=== PATIENT | male | born 1955 | race Caucasian/White ===

== ENCOUNTER 2017-03-09 10:18 | Observation (INO) ==
[2017-03-09] MEDS ORDERED: NS 1,000 ML IV ONE ×2 (10:30→14:09)
[2017-03-09] MEDS: SALINE FLUSH 10ml SYRINGE IVF PRN ×2 (10:39→16:40)
[2017-03-09] MEDS ORDERED: METOPROLOL 5mg/5ml INJECTION IVP ONE (10:40)
--- NOTE | 2017-03-09 11:35 | Emergency Department Report ---
General Adult HPI - General Chief complaint: Chest Pain Stated complaint: cp,dizzy,racing hb Time Seen by Provider: 03/09/17 10:29 Source: patient, family Mode of arrival: ambulatory Limitations: no limitations - History of Present Illness HPI narrative: 62-year-old male presents to the emergency department with a chief complaint of atrial fibrillation. Patient notes feeling what he describes as an indigestion sensation with his heart beating irregularly. Patient denies true pain or discomfort. Patient noted onset of symptoms one to 2 weeks ago while [place] Patient states his symptoms have been persistent in nature since onset. Patient has a history of atrial fibrillation 25 years ago which converted without intervention. Patient is not anticoagulated. Patient does not note any exacerbating or remitting factors. No other complaints or associated symptoms. - Related Data Home Medications Medication Instructions Recorded Confirmed Ibuprofen 400 mg PO TID PRN #0 11/27/15 03/09/17 Somatropin [Genotropin] 0.04 mg SQ DAILY #0 02/28/16 03/09/17 Ranitidine [Zantac] 1 tab PO BID PRN 03/09/17 03/09/17 Previous Rx's Medication Instructions Recorded testosterone cypionate 200 mg/mL 1.5 ml IM Q2WK #10 ml 01/23/17 intramuscular oil Allergies Allergy/AdvReac Type Severity Reaction Status Date / Time varenicline AdvReac Severe NIGHTMARES Verified 03/09/17 10:48 Review of Systems Constitutional: Denies: fever, chills Eyes: Denies: eye pain, vision change ENT: Denies: ear pain, throat pain Cardiovascular: Reports: palpitations. Denies: chest pain Respiratory: Denies: cough, dyspnea Gastrointestinal: Denies: abdominal pain, nausea, vomiting, diarrhea Genitourinary: Denies: urgency, dysuria Musculoskeletal: Denies: back pain, arthralgia Integumentary: Denies: erythema, rash Neurological: Denies: headache, weakness Psychiatric: Denies: anxiety, depression Endocrine: Denies: fatigue, heat or cold intolerance Hematological/Lymphatic: Denies: easy bleeding, easy bruising Allergic/Immunologic: Denies: facial swelling, urticaria PFSH Patient Stated Medical History Cardiac Arrhythmia Yes Gastroesophageal Reflux Yes Disease Clinic Medical History (Last Reviewed 01/23/17 @ 10:03 by ESTEFANY Aparicio) Pituitary insufficiency (Chronic Medical) Doing fairly well with hormone replacements. 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 Obesity (BMI 30-39.9) (Chronic Medical) Good weight loss. Surgical History: Rt feet surgery Family History: Reviewed and non-contributory - Social History Smoking status: Current every day smoker Substance use type: does not use Alcohol intake frequency: a few times a month Physical Exam - Limitations Limitations: no limitations - General General appearance: alert, in no apparent distress - Normal Exams: Head:: Normocephalic without trauma Eyes:: Pupils are PERRLA w/ EOMI, No scleral icterus, irritation, or foreign bodies noted ENMT:: No facial trauma, nasal exudates, pharyngeal erythema, or exudates are noted Dental: No fractured, loose, or missing teeth noted Neck:: Full range of motion, without adenopathy, JVD, bruits or thyromegaly Chest/Respirations:: Clear all eric, with good airflow, and symmetry bilaterally Cardiovascular:: without murmur or gallop, Pulses 2+ all extremities, capillary refill, <2 seconds all extremities (Irreg. Irreg. Rate - 140 bpm. ) Abdomen:: Bowel sounds positive, soft, non-tender, non-distended, no hepatosplenomegaly, masses or bruits noted Lymphatic:: No lymphadenopathy, or lymphedema noted Musculoskeletal:: No tenderness, or deformity noted, good range of motion, all extremities Integumentary:: No rashes, hives, or bruising noted, hair and nails, without abnormality Neurological:: Patient is alert, and oriented, cranial nerves, motor/sensory/ cerebellar, exams w/o gross deficits, to observation Psychiatric:: Patient exhibits, appropriate attention, emotion and affect Course Vital Signs Temperature 97.7 F 03/09/17 10:20 Pulse Rate 151 H 03/09/17 10:20 Respiratory Rate 14 03/09/17 10:20 Blood Pressure 118/100 H 03/09/17 10:20 Pulse Oximetry 99 03/09/17 10:20 Temperature 97.8 F 03/09/17 13:15 Pulse Rate 134 H 03/09/17 14:30 Respiratory Rate 16 03/09/17 14:30 Blood Pressure 118/69 03/09/17 14:30 Pulse Oximetry 99 03/09/17 14:30 Medical Decision Making - MDM Narrative Medical decision making narrative: Labs / imaging were discussed in detail with the patient and family and questions are answered. Patient is given 1 L normal saline intravenously. Patient is given intravenous Lopressor. Patient and his both state the patient is very susceptible to IV medications and requests a low-dose medication be administered at 1st. Patient does improve with his heart rate lowering from 80 to occasionally ranging to 130 bpm. Patient does not stay sustained at 130 bpm. After the IV Lopressor has worn off the patient is given Lopressor 25 mg by mouth 1 with improvement of symptoms. Patient is discussed with Dr. Little of cardiology and admitted to his service to the CCU in improved condition. Patient is admitted to the service of cardiology in improved condition. No further orders from accepting physician who is in agreement with the current plan of management. Patient is given aspirin 324 mg by mouth times one. Patient and family are in agreement with the current plan of management. 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 HR at time of transfer was 112 bpm on the monitor. 60 minutes of critical care time was assessed to the patient due to the heart rate of 151 bpm. Patient required complex medical decision-making, repeated assessment at the bedside, and had the potential for decompensation. Patient was admitted to the CCU in improved condition. - Differential Diagnosis Afib with Rvr, metabolic disorder, PE, ACS - Lab Data Result diagrams: 03/09/17 10:30 03/09/17 10:30 Lab Results 03/09/17 03/09/17 03/09/17 Range/Units 10:30 10:30 10:30 WBC 9.9 (4.5-11.0) T/MM3 RBC 5.24 (4.50-5.90) M/MM3 Hgb 15.6 (13.5-17.5) GM/DL Hct 45.6 (41-53) % MCV 87.0 (80-100) UM3 MCH 29.8 (26-34) UUG MCHC 34.2 (31-37) GM/DL RDW Std Deviation 47.8 (36.9-50.2) FL Plt Count 240 (130-400) T/MM3 MPV 11.2 (9.4-12.4) UM3 Immature Gran % (Auto) 0.1 (0.0-0.5) % Neut % (Auto) 51.2 (33-66) % Lymph % (Auto) 37.8 (23-45) % [place] % (Auto) 7.2 (0-9.0) % Eos % (Auto) 3.0 (0-4) % Baso % (Auto) 0.7 (0-2) % Neut # 5.1 (1.8-7.7) T/MM3 Lymph # 3.7 (1-4.8) T/MM3 [place] # 0.7 (0-0.8) T/MM3 Eos # 0.3 (0-0.5) T/MM3 Baso # 0.1 (0-0.2) T/MM3 Abs Immat Gran (auto) 0.01 (0.00-0.03) T/MM3 D-Dimer 274 H (0-230) NG/ML Turbidity < 20 (0-20) Sodium 142 (134-144) MEQ/L Potassium 4.5 (3.6-5) MEQ/L Chloride 108 H (98-107) MEQ/L Carbon Dioxide 24 (22-30) MEQ/L Anion Gap 10 (5-15) MEQ/L BUN 20.0 (9-20) MG/DL Creatinine 1.1 (0.8-1.5) MG/DL GFR Calculation 68 BUN/Creatinine Ratio 18 (6-26) RATIO Glucose 94 (75-110) MG/DL Calculated Osmolality 276 (261-280) MOSM/KG Calcium 9.7 (8.4-10.2) MG/DL Total Bilirubin 0.80 (0.20-1.30) MG/DL Icterus Index < 2 (0-7) AST 49 (17-59) U/L ALT 52 (21-72) U/L Alkaline Phosphatase 51 (38-126) U/L Troponin I < 0.012 (0-0.12) ng/ml Total Protein 7.3 (6.3-8.2) G/DL Albumin 4.4 (3.5-5.0) G/DL Globulin 2.9 (2.4-3.6) G/DL Albumin/Globulin Ratio 1.5 (1.1-2.2) RATIO Specimen Hemolysis 21 (0-25) - Radiology Data CTA CHEST: No acute processes. - EKG Data EKG #1 EKG results narrative: Atrial fibrillation. 153 beats per minutes. No STEMI. Critical Care Time Critical Care Time: Yes Total Critical Care Time: 60 Attestation: 60 minutes of critical care time was assessed to the patient due to the heart rate of 151 bpm. Patient required complex medical decision-making, repeated assessment at the bedside, and had potential for decompensation. Patient is admitted to the ICU to the care of cardiology in improved condition. Critical care time was spent treating the patient, documenting the medical record, discussing the patient plan of care with the family, and making telephone calls on the patient's behalf. Disposition Clinical Impression: Atrial fibrillation with rapid ventricular response Disposition: 02 To [facility] Condition: Improved Time of Disposition: 13:00 - Seen By: physician
[2017-03-09] MEDS ORDERED: IOHEXOL 350mg/ml 100ml INJECTION ONE (11:39)
[2017-03-09] MEDS ORDERED: SALINE FLUSH 10ml SYRINGE ONE (11:40)
[2017-03-09] MEDS ORDERED: NS 100 ML ONE (11:40)
--- NOTE | 2017-03-09 12:20 | XRay Report ---
Indication: afib with RVR PROCEDURE: XR chest 1V: Encounter: Initial Comparison: None Findings: A single frontal chest radiograph demonstrates cardiomegaly, mild pulmonary vascular prominence, but no evidence of airspace or interstitial change or pleural effusion. Trachea midline. Degenerative changes of the bony elements, age compatible and monitor leads overlie the chest. IMPRESSION: Mild cardiac and pulmonary vascular prominence suggesting hypervolemia or mild congestive change without radiographic evidence of pulmonary edema. .
[2017-03-09] MEDS ORDERED: ASPIRIN 81 MG CHEWABLE TABLET PO ONE (13:30)
[2017-03-09 15:20] VITALS: BMI 33.7
[2017-03-09] MEDS ORDERED: ENOXAPARIN 120 MG/0.8 ML INJECTION SQ SCH (16:04)
[2017-03-09] MEDS ORDERED: DIGOXIN 500 MCG/2 ML INJECTION IVP ONE (16:05)
--- NOTE | 2017-03-09 17:17 | Cardiology History & Physical ---
History of Present Illness Chief complaint: palpitations, dizziness, fatigue HPI: Braulio is a 62-year-old male who presented to the ED with atrial fibrillation. He reports feeling what he describes as an indigestion sensation with his heart beating irregularly. He denies true pain or discomfort. He reports onset of symptoms one [place] ago [place] He reports his symptoms have been persistent in nature since onset. He has a remote history of syncope and atrial fibrillation who was worked up over [address] Paul Castaneda at [facility]. He is not currently on antiarrhythmic or anticoagulation medications. He is examined in his room in CCU. His HR is variable between 80-130s. He states he has had ongoing feeling of of his heart pounding, indigestion, frequent dizziness and fatigue for 1 month. 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 He denies recent illness, fever, chills, sore throat , cough, chest pain or pressure,N/V/D or dysurea. Review of Systems - Constitutional Constitutional: Present: fatigue. Absent: chills, fever(s) - EENMT Eyes: Absent: change in vision Balance: Absent: vertigo Mouth/Throat: Absent: sore throat - Cardiovascular Cardiovascular: Present: palpitations, dyspnea on exertion. Absent: chest pain , syncope, orthopnea Vascular: Absent: pedal edema - Respiratory Respiratory: Present: dyspnea on exertion. 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 Obesity (BMI 30-39.9) (Chronic Medical) Good weight loss. Surgical History: Rt feet surgery Family History: Father- CHF, alcoholism, Mother- CABG X3 in her 70s, No family history of Diabetes or CVA - Social History Smoking status: Current every day smoker packs per day: 1 Substance use type: does not use Alcohol intake frequency: a few times a month Household members: spouse Current occupational status: employed Current residence: Apartment/Private Home Medications Home Medications Medication Instructions Recorded Confirmed Type Somatropin [Genotropin] 0.04 mg SQ DAILY #0 02/28/16 03/09/17 History Allergies Allergy/AdvReac Type Severity Reaction Status Date / Time varenicline AdvReac Severe NIGHTMARES Verified 03/09/17 10:48 Exam Vital signs: Temperature 97.8 F 03/09/17 15:00 Pulse Rate 138 H 03/09/17 16:00 Respiratory Rate 21 03/09/17 16:00 Blood Pressure 120/78 03/09/17 16:00 Pulse Oximetry 97 03/09/17 16:00 Oxygen Delivery Method Room Air - Constitutional no acute distress, well developed, cooperative - Routine HEENT Exam Head: Present: normocephalic ENT: Present: mucous membranes moist - Routine Neck Exam Absent: JVD, carotid bruit - Routine Chest/Breast/Axilla Exam Chest wall: Absent: tenderness - Routine Respiratory Exam Present: CTA bilaterally. Absent: rales, wheezes - Routine Cardiovascular Exam Present: no murmur, irregularly irregular. Absent: JVD - Routine Abdominal Exam Present: soft, normoactive bowel sounds - Routine Extremities Exam Present: no edema - Routine Skin Exam Present: intact, dry, warm - Routine Neurological Exam Present: alert, oriented X3 - Routine Psychiatric Exam Present: normal affect, normal thought process Results 03/11/17 05:27 03/11/17 05:27 Intake and Output 03/09/17 03/09/17 03/09/17 06:59 14:59 22:59 Intake Total 465 / 1705 90 / 90 Balance 465 / 1705 90 / 90 Intake: IV 465 / 465 Normal Saline 1,000 ml @ 465 / 465 999.9 mls/hr IV .Q1H ONE Rx#:[id number] Oral 90 / 90 Other: Weight 277 lb 12.519 oz Patient Weight 03/10/17 06:59 Weight 277 lb 12.519 oz - Imaging and Cardiology Echo: pending EKG results: image reviewed Imaging & Cardiology Narrative: Date of Exam: 03/09/17 Ordering Provider: Gil Winkler DO Type of Exam(s): XR chest 1V Reason for Exam(s): afib with RVR Indication: afib with RVR PROCEDURE: XR chest 1V: Encounter: Initial Comparison: None Findings: A single frontal chest radiograph demonstrates cardiomegaly, mild pulmonary vascular prominence, but no evidence of airspace or interstitial change or pleural effusion. Trachea midline. Degenerative changes of the bony elements, age compatible and monitor leads overlie the chest. IMPRESSION: Mild cardiac and pulmonary vascular prominence suggesting hypervolemia or mild congestive change without radiographic evidence of pulmonary edema. CT Angiography with IV contrast Impression: No central or lobar pulmonary embolism identified as visualized. 03/09/17 17:22 - EKG Interpretation EKG shows: atrial fibrillation EKG interpretations - Dysrhythmias Supraventricular dysrhythmia: atrial fibrillation (rate 153) Hospital Course This is a general summary of the patient's hospital course. For more details refer to the complete medical record. Time spent with patient: 25 - 35 minutes DVT Prophylaxis: Lovenox Assessment and Plan (1) Atrial fibrillation with rapid ventricular response Status: Acute - RVR. variable rate 80-130s. - Metoprolol 2.5mg IV x1 and Metoprolol 25mg by mouth given. - Digoxin 125mcg iv given X1. - Goal is rate control as patient is symptomatic without rhythm conversion due to symptoms ongoing for nearly a month. - Lovenox 1mg/kg SQ BID for anticoagulation. - NPO after midnight for ASHLEY, possible DCCV tomorrow after noon. - Check TSH, MAG (2) Pituitary insufficiency Problem details: Doing fairly well with hormone replacements. Status: Chronic (3) Growth hormone deficiency Problem details: Stable. Status: Chronic (4) Hypogonadotropic hypogonadism Problem details: Fair control. Status: Chronic (5) Obesity (BMI 30-39.9) Problem details: Good weight loss. Status: Chronic - Attestation Attestation Narrative: 03/12/17 08:04 Recommendation After examining the patient I agree with the above assessment. I am involved in the formulation of the patient's plan of care. Sepsis Assessment - Evaluation Sepsis screening result: No Definite Risk
[2017-03-09] MEDS ORDERED: RANITIDINE 150 MG TABLET PO PRN (17:34)
[2017-03-09] MEDS ORDERED: IBUPROFEN 200 MG TABLET PO PRN (17:34)
[2017-03-09] MEDS ORDERED: SOMATROPIN SQ SCH (17:45)
[2017-03-10] MEDS ORDERED: DIGOXIN 500 MCG/2 ML INJECTION IVP ONE (04:25)
[2017-03-10] MEDS: MORPHINE SULFATE 2 MG SYRINGE IVP PRN ×2 (04:26→09:26)
[2017-03-10] MEDS ORDERED: ENOXAPARIN 120 MG/0.8 ML INJECTION SQ SCH (05:00)
[2017-03-10] MEDS ORDERED: SOMATROPIN SQ ONE (08:32)
--- NOTE | 2017-03-10 09:06 | CT Scan Report ---
Indication: Afib RVR PROCEDURE: CT angio pulm emboli: Encounter: Initial Comparison: None Technique: Axial CT pulmonary angiographic phase images were performed through the chest after the administration of intravenous contrast. Coronal and Sagittal MIP reconstructed images were created and reviewed. Automated Exposure Control and Iterative Reconstruction dose reducing techniques were utilized. Contrast: Omnipaque 350 85 mL Findings: Pulmonary arteries: Exam is nondiagnostic for pulmonary embolus due to suboptimal contrast bolus timing. Other findings: No pneumothorax. 5 mm right upper lobe pulmonary nodule which does not require further follow-up due to its size. Scattered areas of groundglass opacity and basilar atelectasis. No pneumothorax or pleural effusion. The central airways are patent. No axillary or mediastinal adenopathy. Heart is mildly enlarged. No pericardial effusion. Reflux of contrast into the hepatic veins suggesting right heart insufficiency. The upper abdomen shows no acute findings. Possible adenomatous hyperplasia of the adrenal glands. Impression: Nondiagnostic exam for pulmonary embolus. VQ scan could be performed for additional evaluation. No acute disease process seen. There is a preliminary report by [employer]. .
[2017-03-10] MEDS ORDERED: SALINE FLUSH 10ml SYRINGE ONE (09:25)
[2017-03-10] MEDS ORDERED: NITROGLYCERIN 0.4 MG SUBLINGUAL TABLET SL PRN (12:17)
[2017-03-10] MEDS ORDERED: BISACODYL 10 MG SUPPOSITORY RECTALLY PRN (12:17)
[2017-03-10] MEDS ORDERED: METOCLOPRAMIDE 10mg/2ml INJECTION IVP PRN (12:17)
[2017-03-10] MEDS ORDERED: ACETAMINOPHEN 500 MG TABLET PO PRN (12:17)
[2017-03-10] MEDS ORDERED: MAG-AL + SIM ORAL LIQUID 30ml PO PRN (12:17)
[2017-03-10] MEDS ORDERED: PROMETHAZINE 25 MG INJECTION IVP PRN (12:17)
[2017-03-10] MEDS ORDERED: LORazepam 1 MG TABLET PO PRN (12:17)
[2017-03-10] MEDS ORDERED: AMIODARONE 150 MG in NS 100 ML IV ONE (12:20)
[2017-03-10] MEDS ORDERED: AMIODARONE 900 MG in NS 500ml 500 ML IV SCH ×2 (12:20→18:20)
[2017-03-10] MEDS: RIVAROXABAN 20 MG TABLET PO SCH ×2 (14:26→17:58)
[2017-03-10] MEDS: SACUBITRIL/VALSARTAN 24/26mg TABLET PO SCH ×2 (14:26→23:36)
[2017-03-10] MEDS: CARVEDILOL 3.125 MG TABLET PO SCH ×2 (14:26→17:58)
[2017-03-10] MEDS: PANTOPRAZOLE 40 MG TABLET PO SCH ×2 (14:26→17:58)
--- NOTE | 2017-03-10 16:49 | Transesophageal Echocardiogram ---
DATE OF PROCEDURE March 10, 2017 The patient is a pleasant 62-year-old gentleman who was admitted with symptomatic atrial fibrillation of unknown duration and was referred for transesophageal echocardiogram to rule out intracardiac thrombus prior to considering cardioversion. Informed consent was obtained after explaining the procedure and the potential risks to the patient, who agreed to proceed with the procedure. PROCEDURE 1. Transesophageal echocardiogram. 2. DC cardioversion. TECHNIQUE Conscious sedation was performed using Versed and fentanyl. Cetacaine spray was used for pharyngeal anesthesia. Probe was advanced into the esophagus and stomach without difficulty and images were obtained in multiple planes. Left atrium is dilated. Left ventricle end-diastolic dimension is normal. Left ventricle wall thickness is normal. LV systolic function is reduced with global hypokinesia with ejection fraction of about 30%. Right atrium is normal. Right ventricle is normal. Aortic root dimension is normal. Mitral valve is morphologically normal with mild mitral regurgitation. Aortic valve is a trileaflet structure with no stenosis. Mild aortic insufficiency is present. Tricuspid valve shows mild tricuspid regurgitation with normal morphology. Pulmonary valve appears to be morphologically normal with mild pulmonary insufficiency. There is no pericardial effusion. Descending thoracic aorta appears to be free of significant atherosclerosis. There is no thrombus or mass in the left atrium, left atrial appendage or left ventricle. IMPRESSION 1. No intracardiac thrombus or mass. 2. Left atrial dilation. 3. Global hypokinesia with ejection fraction of about 30%. 4. Mild mitral regurgitation. 5. Mild aortic insufficiency. 6. Mild tricuspid regurgitation. 7. Mild pulmonary insufficiency. After reviewing the images we decided to proceed with cardioversion. Anterior- posterior Zoll pads were applied. 360 joules of energy were delivered in synchronized manner and patient converted from atrial fibrillation to sinus rhythm. He tolerated the procedure well with no complications. IMPRESSION Successful DC cardioversion of atrial fibrillation to sinus rhythm. PLAN Will start him on antiarrhythmics and maintain anticoagulation. Meanwhile, will start him on beta blockers and Braeden inhibitor/ARB/Entresto for management of the cardiomyopathy. Cardiomyopathy may have been related to atrial fibrillation with RVR, and will wait and repeat echocardiogram in the future. L[employer]
--- NOTE | 2017-03-10 17:40 | Echocardiogram ---
DATE OF PROCEDURE March 10, 2017 This is a two-dimensional echo with spectral Doppler, color-flow and M-mode. It was obtained in a patient with atrial fibrillation. Left atrial dimension is normal. Left ventricle end-diastolic dimension is increased. Left ventricle wall thickness is normal. Severe global hypokinesia is present with ejection fraction of about 25%. Right atrium is normal. Right ventricle is normal. Aortic root dimension is normal. Mitral valve is morphologically normal with mild mitral regurgitation. Aortic valve appears to be normal. Tricuspid valve shows mild tricuspid regurgitation with normal estimated pulmonary artery systolic pressure of 32. Pulmonary valve shows trace of pulmonary insufficiency. There is no pericardial effusion. IMPRESSION 1. Global hypokinesia with ejection fraction of about 25%. 2. Left ventricular dilation. 3. Mild mitral regurgitation. 4. Mild tricuspid regurgitation with normal estimated pulmonary artery systolic pressure of 32. 5. Trace of pulmonary insufficiency. 6. Technically difficult study. MTDD
[2017-03-11] MEDS: PANTOPRAZOLE 40 MG TABLET PO SCH (06:15)
[2017-03-11] MEDS: SACUBITRIL/VALSARTAN 24/26mg TABLET PO SCH (08:23)
[2017-03-11] MEDS: CARVEDILOL 3.125 MG TABLET PO SCH (08:24)
[2017-03-11] MEDS ORDERED: AMIODARONE 200 MG TABLET PO SCH (09:00)
--- NOTE | 2017-03-11 09:48 | Discharge Summary ---
<Gracia Riggins - Last Filed: 03/11/17 09:49> Discharge Information Date of admission: 03/09/17 14:13 Anticipated date of discharge: 03/11/17 Attending Physician: Morgan Alonso MD Primary care physician: Severiano Hartman MD Consults: 03/09/17 17:20 Dietary Consult [CONS] Routine Comment: Reason For Exam: - Discharge Diagnosis Discharge Diagnosis: Atrial fibrillation, Non-ischemic cardiomyopathy - Procedures Procedures: Date of Exam: 03/10/17 Type of Exam(s): US rebekah w/ doppler DATE OF PROCEDURE March 10, 2017 The patient is a pleasant 62-year-old gentleman who was admitted with symptomatic atrial fibrillation of unknown duration and was referred for transesophageal echocardiogram to rule out intracardiac thrombus prior to considering cardioversion. Informed consent was obtained after explaining the procedure and the potential risks to the patient, who agreed to proceed with the procedure. PROCEDURE 1. Transesophageal echocardiogram. 2. DC cardioversion. TECHNIQUE Conscious sedation was performed using Versed and fentanyl. Cetacaine spray was used for pharyngeal anesthesia. Probe was advanced into the esophagus and stomach without difficulty and images were obtained in multiple planes. Left atrium is dilated. Left ventricle end-diastolic dimension is normal. Left ventricle wall thickness is normal. LV systolic function is reduced with global hypokinesia with ejection fraction of about 30%. Right atrium is normal. Right ventricle is normal. Aortic root dimension is normal. Mitral valve is morphologically normal with mild mitral regurgitation. Aortic valve is a trileaflet structure with no stenosis. Mild aortic insufficiency is present. Tricuspid valve shows mild tricuspid regurgitation with normal morphology. Pulmonary valve appears to be morphologically normal with mild pulmonary insufficiency. There is no pericardial effusion. Descending thoracic aorta appears to be free of significant atherosclerosis. There is no thrombus or mass in the left atrium, left atrial appendage or left ventricle. IMPRESSION 1. No intracardiac thrombus or mass. 2. Left atrial dilation. 3. Global hypokinesia with ejection fraction of about 30%. 4. Mild mitral regurgitation. 5. Mild aortic insufficiency. 6. Mild tricuspid regurgitation. 7. Mild pulmonary insufficiency. After reviewing the images we decided to proceed with cardioversion. Anterior- posterior Zoll pads were applied. 360 joules of energy were delivered in synchronized manner and patient converted from atrial fibrillation to sinus rhythm. He tolerated the procedure well with no complications. IMPRESSION Successful DC cardioversion of atrial fibrillation to sinus rhythm. PLAN Will start him on antiarrhythmics and maintain anticoagulation. Meanwhile, will start him on beta blockers and Braeden inhibitor/ARB/Entresto for management of the cardiomyopathy. Cardiomyopathy may have been related to atrial fibrillation with RVR, and will wait and repeat echocardiogram in the future. - Laboratory Labs: 03/11/17 05:27 03/11/17 05:27 Laboratory Results - last 48 hr 03/09/17 03/09/17 03/09/17 10:30 10:30 10:30 WBC 9.9 RBC 5.24 Hgb 15.6 Hct 45.6 MCV 87.0 MCH 29.8 MCHC 34.2 RDW Std Deviation 47.8 Plt Count 240 MPV 11.2 Immature Gran % (Auto) 0.1 Neut % (Auto) 51.2 Lymph % (Auto) 37.8 [place] % (Auto) 7.2 Eos % (Auto) 3.0 Baso % (Auto) 0.7 Neut # 5.1 Lymph # 3.7 [place] # 0.7 Eos # 0.3 Baso # 0.1 Abs Immat Gran (auto) 0.01 D-Dimer 274 H Turbidity < 20 Sodium 142 Potassium 4.5 Chloride 108 H Carbon Dioxide 24 Anion Gap 10 BUN 20.0 Creatinine 1.1 GFR Calculation 68 BUN/Creatinine Ratio 18 Glucose 94 Calculated Osmolality 276 Calcium 9.7 Magnesium Total Bilirubin 0.80 Icterus Index < 2 AST 49 ALT 52 Alkaline Phosphatase 51 Troponin I < 0.012 Total Protein 7.3 Albumin 4.4 Globulin 2.9 Albumin/Globulin Ratio 1.5 Serum Amylase Lipase TSH Specimen Hemolysis 21 03/09/17 03/10/17 03/10/17 16:29 04:32 12:40 WBC RBC Hgb Hct MCV MCH MCHC RDW Std Deviation Plt Count MPV Immature Gran % (Auto) Neut % (Auto) Lymph % (Auto) [place] % (Auto) Eos % (Auto) Baso % (Auto) Neut # Lymph # [place] # Eos # Baso # Abs Immat Gran (auto) D-Dimer Turbidity Sodium Potassium Chloride Carbon Dioxide Anion Gap BUN Creatinine GFR Calculation BUN/Creatinine Ratio Glucose Calculated Osmolality Calcium Magnesium 2.1 Total Bilirubin Icterus Index AST ALT Alkaline Phosphatase Troponin I < 0.012 Total Protein Albumin Globulin Albumin/Globulin Ratio Serum Amylase 41 Lipase TSH 2.71 Specimen Hemolysis < 15 03/10/17 03/10/1717 12:40 12:40 05:27 WBC 8.6 RBC 4.85 Hgb 14.3 Hct 43.0 MCV 88.7 MCH 29.5 MCHC 33.3 RDW Std Deviation 49.1 Plt Count 205 MPV 11.4 Immature Gran % (Auto) Neut % (Auto) Lymph % (Auto) [place] % (Auto) Eos % (Auto) Baso % (Auto) Neut # Lymph # [place] # Eos # Baso # Abs Immat Gran (auto) D-Dimer Turbidity Sodium Potassium Chloride Carbon Dioxide Anion Gap BUN Creatinine GFR Calculation BUN/Creatinine Ratio Glucose Calculated Osmolality Calcium Magnesium Total Bilirubin Icterus Index AST ALT Alkaline Phosphatase Troponin I Total Protein Albumin Globulin Albumin/Globulin Ratio Serum Amylase Lipase Cancelled 69 TSH Specimen Hemolysis 03/11/17 05:27 WBC RBC Hgb Hct MCV MCH MCHC RDW Std Deviation Plt Count MPV Immature Gran % (Auto) Neut % (Auto) Lymph % (Auto) [place] % (Auto) Eos % (Auto) Baso % (Auto) Neut # Lymph # [place] # Eos # Baso # Abs Immat Gran (auto) D-Dimer Turbidity < 20 Sodium 142 Potassium 4.8 Chloride 103 Carbon Dioxide 29 Anion Gap 10 BUN 15.0 Creatinine 1.3 D GFR Calculation 56 BUN/Creatinine Ratio 12 Glucose 84 Calculated Osmolality 273 Calcium 9.6 Magnesium Total Bilirubin Icterus Index < 2 AST ALT Alkaline Phosphatase Troponin I Total Protein Albumin Globulin Albumin/Globulin Ratio Serum Amylase Lipase TSH Specimen Hemolysis < 15 - Radiology Radiology: Date of Exam: 03/10/17 Type of Exam(s): US echo doppler complete DATE OF PROCEDURE March 10, 2017 This is a two-dimensional echo with spectral Doppler, color-flow and M-mode. It was obtained in a patient with atrial fibrillation. Left atrial dimension is normal. Left ventricle end-diastolic dimension is increased. Left ventricle wall thickness is normal. Severe global hypokinesia is present with ejection fraction of about 25%. Right atrium is normal. Right ventricle is normal. Aortic root dimension is normal. Mitral valve is morphologically normal with mild mitral regurgitation. Aortic valve appears to be normal. Tricuspid valve shows mild tricuspid regurgitation with normal estimated pulmonary artery systolic pressure of 32. Pulmonary valve shows trace of pulmonary insufficiency. There is no pericardial effusion. IMPRESSION 1. Global hypokinesia with ejection fraction of about 25%. 2. Left ventricular dilation. 3. Mild mitral regurgitation. 4. Mild tricuspid regurgitation with normal estimated pulmonary artery systolic pressure of 32. 5. Trace of pulmonary insufficiency. 6. Technically difficult study. Date of Exam: 03/09/17 Ordering Provider: Gil Winkler DO Type of Exam(s): XR chest 1V Reason for Exam(s): afib with RVR Indication: afib with RVR PROCEDURE: XR chest 1V: Encounter: Initial Comparison: None Findings: A single frontal chest radiograph demonstrates cardiomegaly, mild pulmonary vascular prominence, but no evidence of airspace or interstitial change or pleural effusion. Trachea midline. Degenerative changes of the bony elements, age compatible and monitor leads overlie the chest. IMPRESSION: Mild cardiac and pulmonary vascular prominence suggesting hypervolemia or mild congestive change without radiographic evidence of pulmonary edema. Date of Exam: 03/09/17 Ordering Provider: Gil Winkler DO Type of Exam(s): CT angio pulm emboli Reason for Exam(s): Afib RVR Indication: Afib RVR PROCEDURE: CT angio pulm emboli: Encounter: Initial Comparison: None Technique: Axial CT pulmonary angiographic phase images were performed through the chest after the administration of intravenous contrast. Coronal and Sagittal MIP reconstructed images were created and reviewed. Automated Exposure Control and Iterative Reconstruction dose reducing techniques were utilized. Contrast: Omnipaque 350 85 mL Findings: Pulmonary arteries: Exam is nondiagnostic for pulmonary embolus due to suboptimal contrast bolus timing. Other findings: No pneumothorax. 5 mm right upper lobe pulmonary nodule which does not require further follow-up due to its size. Scattered areas of groundglass opacity and basilar atelectasis. No pneumothorax or pleural effusion. The central airways are patent. No axillary or mediastinal adenopathy. Heart is mildly enlarged. No pericardial effusion. Reflux of contrast into the hepatic veins suggesting right heart insufficiency. The upper abdomen shows no acute findings. Possible adenomatous hyperplasia of the adrenal glands. Impression: Nondiagnostic exam for pulmonary embolus. VQ scan could be performed for additional evaluation. No acute disease process seen. History of Present Illness HPI: Braulio is a 62-year-old male who presented to the ED with atrial fibrillation. He reports feeling what he describes as an indigestion sensation with his heart beating irregularly. He denies true pain or discomfort. He reports onset of symptoms one [place] He reports his symptoms have been persistent in nature since onset. He has a remote history of syncope and atrial fibrillation who was worked up over [address] Paul Castaneda at [facility]. He is not currently on antiarrhythmic or anticoagulation medications. He is examined in his room in CCU. His HR is variable between 80-130s. He states he has had ongoing feeling of of his heart pounding, indigestion, frequent dizziness and fatigue for 1 month. 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 He denies recent illness, fever, chills, sore throat , cough, chest pain or pressure,N/V/D or dysurea. Hospital Course This is a general summary of the patient's hospital course. For more details refer to the complete medical record. Time spent with patient: 25 - 35 minutes DVT Prophylaxis: Pradaxa Exam Vital signs: Temperature 97.6 F 03/10/17 08:00 Pulse Rate 62 03/11/17 08:00 Respiratory Rate 16 03/11/17 06:00 Blood Pressure 122/92 H 03/11/17 06:00 Pulse Oximetry 97 03/11/17 06:00 Oxygen Delivery Method Room Air Oxygen Flow Rate 2 SaO2/FiO2 Ratio 67 - Constitutional no acute distress, obese, cooperative - Routine HEENT Exam Head: Present: normocephalic Nose: moist mucous membranes - Routine Neck Exam Absent: JVD, carotid bruit - Routine Chest/Breast/Axilla Exam Chest wall: Absent: tenderness - Routine Respiratory Exam Present: CTA bilaterally. Absent: rales, wheezes - Routine Cardiovascular Exam Present: RRR, no murmur. Absent: JVD - Routine Abdominal Exam Present: soft, normoactive bowel sounds - Routine Skin Exam Present: intact, dry, warm - Routine Neurological Exam Present: alert, oriented X3 - Routine Psychiatric Exam Present: normal affect, normal thought process Results 03/11/17 05:27 03/11/17 05:27 CBC 03/11/17 Range/Units 05:27 WBC 8.6 (4.5-11.0) T/MM3 RBC 4.85 (4.50-5.90) M/MM3 Hgb 14.3 (13.5-17.5) GM/DL Hct 43.0 (41-53) % Plt Count 205 (130-400) T/MM3 Comprehensive Metabolic Panel 03/11/17 Range/Units 05:27 Sodium 142 (134-144) MEQ/L Potassium 4.8 (3.6-5) MEQ/L Chloride 103 (98-107) MEQ/L Carbon Dioxide 29 (22-30) MEQ/L BUN 15.0 (9-20) MG/DL Creatinine 1.3 D (0.8-1.5) MG/DL Glucose 84 (75-110) MG/DL Calcium 9.6 (8.4-10.2) MG/DL Intake and Output 03/10/17 03/11/17 03/11/17 22:59 06:59 14:59 Intake Total 446.072 / 446.072 133.28 / 133.28 56.922 / 56.922 Output Total 850 / 850 1000 / 1000 Balance -403.928 / -403.928 -866.72 / -866.72 56.922 / 56.922 Intake: IV 206.072 / 206.072 133.28 / 133.28 56.922 / 56.922 Cordarone 900 mg In 206.072 / 206.072 133.28 / 133.28 56.922 / 56.922 Normal Saline 500 ml @ 0. 5 MG/MIN 16.66 mls/hr IV .Q24H [place] Rx#:[id number] Oral 240 / 240 Output: Urine 850 / 850 1000 / 1000 Other: # Voids 1 - Imaging and Cardiology Echo: report reviewed EKG results: image reviewed - EKG Interpretation EKG: sinus rhythm EKG shows: bradycardia Discharge Plan - Med Rec/Dispo Referrals/Follow Up: Mogran Alonso MD [Physician] - 03/27/17 10:30 am Nila Instructions: A-fib (Atrial Fibrillation) (DC) Prescriptions: New Amiodarone [Pacerone] 200 mg PO DAILY #30 tablet Dabigatran [Pradaxa] 150 mg PO BID #60 capsule Pantoprazole Tab [Protonix Tab] 40 mg PO ACBID #60 tablet Carvedilol [Coreg] 3.125 mg PO BIDWM #60 tablet Sacubitril/Valsartan 24-26 [Entresto 24 mg-26 mg Tablet] 1 tab PO BID #60 tablet Continue Somatropin [Genotropin] 0.04 mg SQ DAILY #0 testosterone cypionate 200 mg/mL intramuscular oil 1.5 ml IM Q2WK #10 ml Discontinued Ibuprofen 400 mg PO TID PRN #0 PRN Reason: PAIN Ranitidine [Zantac] 1 tab PO BID PRN PRN Reason: indigestion - Disposition 01 Discharged Home, Self-Care <Morgan Alonso - Last Filed: 03/13/17 12:49> Discharge Information Date of admission: 03/09/17 14:13 Attending Physician: Morgan Alonso MD Primary care physician: Severiano Hartman MD Consults: 03/09/17 17:20 Dietary Consult [CONS] Routine Comment: Reason For Exam: cardiac diet, healthy food - Laboratory Labs: 03/11/17 05:27 03/11/17 05:27 Hospital Course This is a general summary of the patient's hospital course. For more details refer to the complete medical record. Exam Vital signs: Temperature 98.3 F 03/11/17 14:57 Pulse Rate 58 L 03/11/17 15:30 Respiratory Rate 21 03/11/17 15:30 Blood Pressure 138/91 H 03/11/17 12:00 Pulse Oximetry 99 03/11/17 15:30 Oxygen Delivery Method Room Air Oxygen Flow Rate 2 SaO2/FiO2 Ratio 67 Results 03/11/17 05:27 03/11/17 05:27 Discharge Plan - Med Rec/Dispo - Attestation Attestation Narrative: 03/13/17 12:49 Recommendation After examining the patient I agree with the above assessment. I am involved in the formulation of the patient's plan of care.
[2017-03-11 10:40] VITALS: TEMP 98.3
[2017-03-11 14:57] VITALS: BP 138/91
[2017-03-11 16:32] VITALS: PULSE 58; RESP 21; O2SAT 99
[2017-03-14] MEDS ORDERED: TESTOSTERONE CYPIONATE 100 MG/ML IM SCH (09:00)
== END 2017-03-11 15:55 | disposition home or self-care (01) ==
LOC: ED 10:18 → CCU 10:18
PROVIDERS: ADMIT Internal Medicine Cardiovascular Disease; ATTEND Internal Medicine Cardiovascular Disease

== ENCOUNTER 2017-05-04 10:31 | Observation (INO) ==
[2017-05-04 10:49] VITALS: TEMP 97.6
[2017-05-04] MEDS: SALINE FLUSH 10ml SYRINGE IVF PRN (12:00)
--- NOTE | 2017-05-04 12:00 | Emergency Department Report ---
Cardiac General HPI - General Chief Complaint: Arrhythmia/Palpitations Stated Complaint: Fast HR, Per life vest Time Seen by Provider: 05/04/17 11:02 Source: patient, family, old records reviewed Mode of arrival: ambulatory Limitations: no limitations - History of Present Illness HPI narrative: 62yo man presented to the ER for evaluation of irregular heart rhythm/rate. Pts Life-vest alarmed early this morning while he was up to urinate. It showed that pt was in A-fib (which he is chronically now) with RVR. Life-vest contacted pts material lister who called pt to present to the ER for evaluation. After discussion with cardiology PROPELLER TESTER, pt was given his pain medication and slept from 0400 until just prior to admission. He remained in RVR for the duration. Pt has not had any of his other AM meds. In FEB of this year, pt was found to be in a-fib. Hx suggested that he had been in a-fib for 30 days prior to dx. Pt was admitted to the CCU and cardioverted. Pt was in NSR until MAR. Pt was placed in a life-vest at that time to monitor for arrhythmias. Pts long-standing sx resulted in heart failureIn MAR, pt began to have severe HAs; initially this was chalked up to his anti-arrhythmic medications. 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 Pt underwent craniotomy in late MAR and was then found to be in a-fib with RVR. Hospitalist was never able to fully control the rate, but pt was d/c'ed anyway 6 days ago. Occurred At: home Onset (ago): hour(s) Duration: constant Severity: moderate Context: occurred during exertion Activites at Onset: other (micturation) Prior Chest Pain/Cardiac Workup: echocardiography Modifying Factors: none Nitro Today: no nitro taken today Associated Symtoms: denies other symptoms History of Similar Symptoms: Yes - Related Data Home Medications Medication Instructions Recorded Confirmed Somatropin [Genotropin] 0.04 mg SQ DAILY #0 02/28/16 05/04/17 Cortef (Hydrocortisone) 10 mg 10 mg PO HS tab 05/02/17 05/04/17 tablet Cortef (Hydrocortisone) 10 mg 20 mg PO QAM tab 05/02/17 05/04/17 tablet zuaaioehhq-otdkggpvfqbft-qauhdxnv 1 cap PO Q6HR PRN cap 05/02/17 05/04/17 50 mg-300 mg-40 mg capsule morphine 15 mg immediate release 7.5 mg PO Q6H PRN tab 05/02/17 05/04/17 tablet Seroquel (quetiapine) 25 mg tablet 25 mg PO .COMPLEX tab 05/12/17 sennosides 8.6 mg tablet 8.6 mg PO .as needed tab 05/12/17 Previous Rx's Medication Instructions Recorded Dabigatran [Pradaxa] 150 mg PO BID #60 capsule 03/11/17 SACUBITRIL/VALSARTAN 24/26mg 1 tab PO BID #60 tablet 03/11/17 [ENTRESTO 24/26mg] Metoprolol Tartrate [Lopressor] 100 mg PO BID #60 tab 05/05/17 Ativan (lorazepam) 1 mg tablet 1 mg PO TID PRN #60 tab 05/13/17 digoxin 250 mcg tablet 250 mcg PO .COMPLEX #30 tab 05/13/17 Depo-Testosterone (testosterone 300 mg IM Q2WKS #10 ml 05/19/17 cypionate) 200 mg/mL intramuscular oil levothyroxine 50 mcg tablet 50 mcg PO DAILY #30 tab 05/23/17 Allergies Allergy/AdvReac Type Severity Reaction Status Date / Time varenicline AdvReac Severe NIGHTMAR[place] Verified 05/04/17 11:06 Review of Systems All systems: reviewed and negative except as stated Cardiovascular: Reports: as per HPI, palpitations Endocrine: Reports: as per HPI, fatigue [facility] Patient Stated Medical History Cardiac Arrhythmia Yes: a fib 1987 or 1988; AFIB POST CRANIOTOMY Congestive Heart Failure Yes: 03/13 Other Cardiology Yes: frequent irregular heartbeat with regular underlying rhythm Gastroesophageal Reflux Yes Disease Depression Yes: present at [employer] ; 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 Obesity (BMI 30-39.9) (Chronic Medical) Good weight loss. A-fib (Inactive Medical) Surgical History: Rt feet surgery. craniotomy 04/16/17 Macroadenoma (sella) Family History: Family History (Last Reviewed 05/12/17 @ 09:28 by Eleno Morrell MD) Father , 44 CHF (congestive heart failure) Mother Dementia - Social History Smoking status: Current every day smoker Physical Exam - Limitations Limitations: no limitations - General General appearance: alert, in no apparent distress, obese - Normal Exams: Head:: Normocephalic without trauma Eyes:: Pupils are PERRLA w/ EOMI, No scleral icterus, irritation, or foreign bodies noted ENMT:: No facial trauma, nasal exudates, pharyngeal erythema, or exudates are noted Neck:: Full range of motion, without adenopathy, JVD, bruits or thyromegaly Lymphatic:: No lymphadenopathy Musculoskeletal:: No tenderness, or deformity noted Integumentary:: No rashes, hives, or bruising noted Neurological:: Patient is alert, and oriented Psychiatric:: Patient exhibits, appropriate attention Course - Consultations Consultation #1: Dr. Alonso: Recommends admission for rate control and due to complexity of pts case. Time: 13:06 Consultation #2: Hospitalist: Agrees that pt needs to be admitted; requests that admission be performed by cards. Time: 13:10 Consultation #3: Cardiology: Will admit and consult medicine. Time: 13:42 Vital Signs Temperature 97.6 F 05/04/17 10:33 Pulse Rate 141 H 05/04/17 10:33 Respiratory Rate 20 05/04/17 10:33 Blood Pressure 116/75 05/04/17 10:33 Pulse Oximetry 96 05/04/17 10:33 Temperature 97.6 F 05/05/17 15:21 Pulse Rate 69 05/05/17 17:28 Respiratory Rate 18 05/05/17 15:21 Blood Pressure 105/66 05/05/17 17:28 Pulse Oximetry 96 05/05/17 17:28 Cardiac General - Differential Diagnosis Differential diagnosis: Likely: palpitations, anxiety, artial fibrillation, ventricular premature beats, supraventricular tachycardia, ventricular tachycardia - Medical Records Attestation: I reviewed the patient's medical records. - Lab Data Attestation: I reviewed the patient's lab results. Result diagrams: 05/04/17 12:00 05/04/17 12:00 Lab Results 05/04/17 05/04/17 05/04/17 Range/Units 12:00 12:00 12:00 WBC 12.8 H (4.5-11.0) T/MM3 RBC 4.84 (4.50-5.90) M/MM3 Hgb 14.5 (13.5-17.5) GM/DL Hct 44.1 (41-53) % MCV 91.1 (80-100) UM3 MCH 30.0 (26-34) UUG MCHC 32.9 (31-37) GM/DL RDW Std Deviation 56.8 H (36.9-50.2) FL Plt Count 443 H D (130-400) T/MM3 MPV 9.5 (9.4-12.4) UM3 Immature Gran % (Auto) 0.5 (0.0-0.5) % Neut % (Auto) 60.9 (33-66) % Lymph % (Auto) 27.9 (23-45) % [place] % (Auto) 8.4 (0-9.0) % Eos % (Auto) 1.4 (0-4) % Baso % (Auto) 0.9 (0-2) % Neut # (Auto) 7.8 H (1.8-7.7) T/MM3 Lymph # (Auto) 3.6 (1-4.8) T/MM3 [place] # (Auto) 1.1 H (0-0.8) T/MM3 Eos # (Auto) 0.2 (0-0.5) T/MM3 Baso # (Auto) 0.1 (0-0.2) T/MM3 Abs Immat Gran (auto) 0.06 H (0.00-0.03) T/MM3 D-Dimer 159 (0-230) NG/ML Turbidity < 20 (0-20) Sodium 140 (134-144) MEQ/L Potassium 4.3 (3.6-5) MEQ/L Chloride 103 (98-107) MEQ/L Carbon Dioxide 26 (22-30) MEQ/L Anion Gap 11 (5-15) MEQ/L BUN 26.0 H (9-20) MG/DL Creatinine 1.0 (0.8-1.5) MG/DL GFR Calculation 76 BUN/Creatinine Ratio 26 (6-26) RATIO Glucose 101 (75-110) MG/DL Calculated Osmolality 274 (261-280) MOSM/KG Calcium 9.8 (8.4-10.2) MG/DL Magnesium (1.6-2.3) MG/DL Icterus Index < 2 (0-7) TSH (0.47-4.68) MIU/L Specimen Hemolysis < 15 (0-25) Ur Collection Type Urine Color (YELLOW) Urine Clarity Urine pH (5.0-8.0) Ur Specific [place] (1.015-1.025) Urine Protein (NEGATIVE) Urine Glucose (UA) (NEGATIVE) Urine Ketones (NEGATIVE) Urine Occult Blood (NEGATIVE) Urine Nitrate (NEGATIVE) Urine Bilirubin (NEGATIVE) Urine Urobilinogen (NORMAL) EU/DL Ur Leukocyte Esterase (NEGATIVE) Urinalysis Comment 05/04/17 05/04/17 Range/Units 12:00 12:44 WBC (4.5-11.0) T/MM3 RBC (4.50-5.90) M/MM3 Hgb (13.5-17.5) GM/DL Hct (41-53) % MCV (80-100) UM3 MCH (26-34) UUG MCHC (31-37) GM/DL RDW Std Deviation (36.9-50.2) FL Plt Count (130-400) T/MM3 MPV (9.4-12.4) UM3 Immature Gran % (Auto) (0.0-0.5) % Neut % (Auto) (33-66) % Lymph % (Auto) (23-45) % [place] % (Auto) (0-9.0) % Eos % (Auto) (0-4) % Baso % (Auto) (0-2) % Neut # (Auto) (1.8-7.7) T/MM3 Lymph # (Auto) (1-4.8) T/MM3 [place] # (Auto) (0-0.8) T/MM3 Eos # (Auto) (0-0.5) T/MM3 Baso # (Auto) (0-0.2) T/MM3 Abs Immat Gran (auto) (0.00-0.03) T/MM3 D-Dimer (0-230) NG/ML Turbidity (0-20) Sodium (134-144) MEQ/L Potassium (3.6-5) MEQ/L Chloride (98-107) MEQ/L Carbon Dioxide (22-30) MEQ/L Anion Gap (5-15) MEQ/L BUN (9-20) MG/DL Creatinine (0.8-1.5) MG/DL GFR Calculation BUN/Creatinine Ratio (6-26) RATIO Glucose (75-110) MG/DL Calculated Osmolality (261-280) MOSM/KG Calcium (8.4-10.2) MG/DL Magnesium 2.1 (1.6-2.3) MG/DL Icterus Index (0-7) TSH 1.42 (0.47-4.68) MIU/L Specimen Hemolysis (0-25) Ur Collection Type Urine, clean catch Urine Color Yellow (YELLOW) Urine Clarity Clear Urine pH 6.0 (5.0-8.0) Ur Specific [place] <=1.005 L (1.015-1.025) Urine Protein Negative (NEGATIVE) Urine Glucose (UA) Negative (NEGATIVE) Urine Ketones Negative (NEGATIVE) Urine Occult Blood Negative (NEGATIVE) Urine Nitrate Negative (NEGATIVE) Urine Bilirubin Negative (NEGATIVE) Urine Urobilinogen 0.2 (NORMAL) EU/DL Ur Leukocyte Esterase Negative (NEGATIVE) Urinalysis Comment Microscopic not ind. - Radiology Data Attestation: I reviewed the patient's radiology results. Improved chest. No acute pathology. - EKG Data EKG #1 EKG attestation: Yes: I reviewed and interpreted this EKG. EKG shows normal: intervals, QRS complexes, ST-T waves Rhythm: A.Fib [place]/QRS: left axis deviation Voltage: decreased voltage throughout Disposition Clinical Impression: Atrial fibrillation Qualifiers: Atrial fibrillation type: unspecified Qualified Code(s): I48.91 - Unspecified atrial fibrillation Disposition: To [facility] Condition: Stable - Seen By: physician
[2017-05-04] MEDS ORDERED: ONDANSETRON 4 MG/2 ML INJECTION IVP PRN (16:06)
[2017-05-04] MEDS ORDERED: ACETAMINOPHEN 325 MG TABLET PO PRN (16:06)
[2017-05-04] MEDS ORDERED: CAFFEINE PO PRN (21:30)
[2017-05-04] MEDS ORDERED: BUTALBITAL PO PRN (21:30)
[2017-05-04] MEDS ORDERED: APAP PO PRN (21:30)
[2017-05-04] MEDS ORDERED: TESTOSTERONE CYPIONATE 200 MG/ML IM SCH (21:30)
--- NOTE | 2017-05-04 21:51 | Cardiology History & Physical ---
History of Present Illness Chief complaint: A-fib HPI: This is a 62 year old patient known to Dr. Alonso for A-fib, cardiomyopathy, last echo showed. 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 After the craniotomy surgery , he went back into A-fib. His HR has been difficult to control since. Of course his electrolytes and hormones have been out of whack. he now has a chronic headache. On 02/2017 he had A-fib s/p ASHLEY / DCCV. ASHLEY: NICM, EF 25-30% and he was cardioverted from A-fib to SR. Life Vest placed on pt. On 04/23/2017 echo: EF 45-50%. Since he was having frequent non sustained runs of V-tach, therefore we continued the Life Vest and Amiodarone. On Friday he had an appt with Dr. Hartman, his PCP, and had the tawny removed from his craniotomy. His BP was low in the 80's and Entresto was was cut in half. called pharmacist to make sure it could be cut in half. On Sat his BP was 98/60 and she resumed Entresto 1 whole tab daily. This morning at 0400 he got up to use the bathroom and get a drink of water and the Life Vest started alarming. He and pushed the button to stop the alarming. the Life Vest alarmed 3x. called the Life Vest rep and was told he was in A-fib w RVR and not V-tach. They were told the range for his HR was set at 62 - 150 and it was set when he was not in A-fib. He did not feel the palpitations, was not SOB, lightheaded or dizzy. They went back to bed. At 0900 they received a call from [employer] with Dr. Alonso and advised to go to the ER to monitor his HR and attempt better HR control. He had not taken his am meds because they were going to the hospital and did not think he should take them for fear provider may need to change. About 1100 they arrived in the [facility] ER and he was in A-fib, HR 140's. and Dr. Diez called [employer] and gave metoprolol 50mg x2 and the rest of his morning meds including amiodarone. We held the Entresto due to low BP in the 90's. In about 1 hr his HR came down to 120's and later 100 's to 110's. Pt and states they did not get any sleep at night while in the [facility] for his craniotomy. He has been home about a week. They both want him to get some sleep. Review of Systems - Constitutional Constitutional: Present: headache(s) - EENMT Eyes: Present: change in vision Mouth/Throat: Absent: sore throat - Cardiovascular Cardiovascular: Absent: chest pain, syncope, dyspnea on exertion, orthopnea, edema Vascular: Absent: pedal edema - Respiratory Respiratory: Absent: cough - Gastrointestinal Gastrointestinal: Absent: abdominal pain, constipation, diarrhea, melena, nausea - Genitourinary Genitourinary: Absent: difficulty urinating, dysuria - Musculoskeletal Musculoskeletal: Present: other Musculoskeletal Comments: unsure if he has musculoskeletal pain. - Integumentary/Breasts Integumentary: Present: other (incision on right side of head. healing well. ). Absent: rash - Neurological Neurological: Absent: dizziness, frequent falls - Psychiatric Psychiatric: Present: abnormal sleep pattern, anxiety, depression, mood swings - Endocrine Endocrine: Absent: palpitations - Hematologic/Lymphatic Hematologic/Lymphatic: Absent: easy bleeding, easy bruising [facility] Patient Stated Medical History Other HEENT frequent headaches Angina Yes Cardiac Arrhythmia Yes: a fib 1987 or 1988; AFIB POST CRANIOTOMY Congestive Heart Failure Yes: 03/13 Hypotension Yes Other Cardiology Yes: frequent irregular heartbeat with regular underlying rhythm Gastroesophageal Reflux Yes Disease Other Musculoskeletal craniotomy Depression Yes: present at [employer] shooting, [employer] vet ; 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 Obesity (BMI 30-39.9) (Chronic Medical) Good weight loss. A-fib (Inactive Medical) Surgical History: Rt feet surgery. craniotomy 04/16/17 Macroadenoma (sella). 1998 first pituitary trans-sphenoidal tumor resection in 1998. Family History: Family History (Last Updated 04/14/17 @ 13:28 by Shikha South [facility]) Father , 44 CHF (congestive heart failure) Mother Dementia - Social History Smoking status: Former smoker Substance use type: does not use Alcohol intake frequency: does not drink Housing: house Household members: spouse Current residence: Apartment/Private Home Medications Home Medications Medication Instructions Recorded Confirmed Type Somatropin [Genotropin] 0.04 mg SQ DAILY #0 02/28/16 05/04/17 History Testosterone Cypionate 200 mg IM Q2WKS 04/14/17 05/04/17 History Cortef (Hydrocortisone) 10 mg 10 mg PO HS tab 05/02/17 05/04/17 History tablet Cortef (Hydrocortisone) 10 mg 20 mg PO QAM tab 05/02/17 05/04/17 History tablet Seroquel (quetiapine) 25 mg tablet 50 mg PO BID tab 05/02/17 05/04/17 History zulaeibald-ulazfrjenikyn-mbbocqhp 1 cap PO Q6HR PRN cap 05/02/17 05/04/17 History 50 mg-300 mg-40 mg capsule levothyroxine 50 mcg tablet 50 mcg PO DAILY tab 05/02/17 05/04/17 History morphine 15 mg immediate release 7.5 mg PO Q6H PRN tab 05/02/17 05/04/17 History tablet Allergies Allergy/AdvReac Type Severity Reaction Status Date / Time varenicline AdvReac Severe NIGHTMARES Verified 05/04/17 11:06 Exam Vital signs: Temperature 97.6 F 05/04/17 10:33 Pulse Rate 79 05/04/17 14:15 Respiratory Rate 16 05/04/17 14:15 Blood Pressure 97/67 05/04/17 14:15 Pulse Oximetry 98 05/04/17 14:15 - Constitutional no acute distress, well nourished, well developed, cooperative, agitated - Routine HEENT Exam Head: Present: normocephalic (has healing incision on right side of head rom crainiotomy. ) Eye: Present: conjunctivae pink ENT: Present: mucous membranes moist Throat: normal inspection - Routine Neck Exam Absent: JVD, carotid bruit - Routine Chest/Breast/Axilla Exam Chest wall: Absent: tenderness - Routine Respiratory Exam Present: CTA bilaterally - Routine Cardiovascular Exam Present: tachycardia, irregular rhythm - Routine Abdominal Exam Present: soft, normoactive bowel sounds, non tender - Routine Extremities Exam Present: no edema, non tender, full ROM, pulses intact, normal capillary refill - Routine Back/Spine/Pelvis Exam Back/Spine: Present: full ROM - Routine Skin Exam Present: intact, dry - Routine Neurological Exam Present: alert, oriented X3, moving all extremities, vision grossly intact, hearing grossly intact, normal speech - Routine Psychiatric Exam Present: normal affect, normal thought process, cooperative, agitated Results 05/04/17 12:00 05/04/17 12:00 Intake and Output 05/04/17 05/04/17 05/04/17 06:59 14:59 22:59 Intake Total 480 / 480 Balance 480 / 480 Intake: Oral 480 / 480 Other: Weight 269 lb 2.951 oz Patient Weight 05/05/17 06:59 Weight 269 lb 2.951 oz - EKG Interpretation EKG shows: atrial fibrillation (05/04/2017 ECG: A-fib, HR 99, LAD, LVQRS, septal infarct, age undetermined. ) Hospital Course This is a general summary of the patient's hospital course. For more details refer to the complete medical record. Assessment and Plan - Attestation Attestation Narrative: 05/06/17 08:08 Recommendation After examining the patient I agree with the above assessment. I am involved in the formulation of the patient's plan of care. - Assessment and Plan (1) Cardiomyopathy Status: Chronic EF 45-50%. No signs of heart failure. He is laying in bed flat, no SOB, no edema. cont metoprolol for HR control. stop Entresto due to low BP. has Life Vest on for NSVT in prior hospitalization. (2) Atrial fibrillation with rapid ventricular response Status: Chronic Difficult to control HR. He received metoprolol 500 mg in am, 50mg at 1700 and 50mg at 2300. Will increase metoprolol 100mg BID - but consider 50mg QID or TID. Amiodarone was cont for NSVT Pradaxa - cont. (3) Hypotension Status: Acute Stop Entresto so we can increase metoprolol for HR control. (4) Pituitary insufficiency Problem details: Doing fairly well with hormone replacements. Status: Chronic cont home meds. Pt's would like to have Dr. Morrell consulted - not sure if he sees pt's in hospital. they plan ot f/u with him as outpt. Addendum entered and electronically signed by Socorro Trotter APRN 05/05/17 00:06: Pt first seen by Dr. Alonso on 05/05/2017.
[2017-05-04] MEDS ORDERED: HYDROCORTISONE 10 MG PO SCH (21:53)
[2017-05-04] MEDS ORDERED: QUETIAPINE 50 MG TABLET PO SCH (21:54)
[2017-05-05] MEDS ORDERED: --POM--LEVOTHYROXINE 50 MCG TABLET PO SCH (07:30)
--- NOTE | 2017-05-05 07:46 | XRay Report ---
Indication: A-fib with RVR PROCEDURE: XR chest 1V: Encounter: Initial Comparison: March 09, 2017 FINDINGS: The lungs are clear. There is no abnormal airspace opacity, pleural effusion or pneumothorax identified. The heart size, pulmonary vasculature and mediastinum are within normal limits. No significant skeletal abnormality is seen. IMPRESSION: No acute cardiopulmonary abnormality. .
[2017-05-05] MEDS ORDERED: --POM--QUETIAPINE 50 MG TABLET PO SCH (09:00)
[2017-05-05] MEDS ORDERED: SOMATROPIN PO SCH (09:00)
[2017-05-05] MEDS ORDERED: --POM--AMIODARONE 200 MG TABLET PO SCH (09:00)
[2017-05-05] MEDS ORDERED: DABIGATRAN 150 MG PO SCH (09:00)
[2017-05-05] MEDS ORDERED: --POM--METOPROLOL TARTRATE 100mg TABLET PO SCH (09:00)
[2017-05-05] MEDS ORDERED: HYDROCORTISONE 10 MG PO SCH (09:00)
[2017-05-05] MEDS ORDERED: POLYETHYL GLYCOL 3350 17gm PACKET PO PRN (13:54)
[2017-05-05] MEDS: SALINE FLUSH 10ml SYRINGE IVF PRN (13:58)
[2017-05-05] MEDS ORDERED: BISACODYL 10 MG SUPPOSITORY RECTALLY PRN (15:01)
[2017-05-05 15:26] VITALS: RESP 18
[2017-05-05] MEDS ORDERED: FLEET PHOSPHO - SODA ENEMA 133ml PR PRN (16:31)
[2017-05-05 17:29] VITALS: BP 105/66; PULSE 69; O2SAT 96
--- NOTE | 2017-05-05 18:37 | Discharge Summary ---
<Gracia Riggins - Last Filed: 05/07/17 07:23> Discharge Information Date of admission: 05/04/17 14:12 Anticipated date of discharge: 05/05/17 Attending Physician: Morgan Alonso MD Primary care physician: Severiano Hartman MD - Discharge Diagnosis (1) Pituitary insufficiency Status: Chronic (2) Atrial fibrillation with rapid ventricular response Status: Chronic (3) Hypotension Status: Acute (4) Cardiomyopathy Status: Chronic - Laboratory Labs: Laboratory Results - last 72 hr 05/04/17 05/04/17 05/04/17 12:00 12:00 12:00 WBC 12.8 H RBC 4.84 Hgb 14.5 Hct 44.1 MCV 91.1 MCH 30.0 MCHC 32.9 RDW Std Deviation 56.8 H Plt Count 443 H D MPV 9.5 Immature Gran % (Auto) 0.5 Neut % (Auto) 60.9 Lymph % (Auto) 27.9 Posey % (Auto) 8.4 Eos % (Auto) 1.4 Baso % (Auto) 0.9 Neut # (Auto) 7.8 H Lymph # (Auto) 3.6 Posey # (Auto) 1.1 H Eos # (Auto) 0.2 Baso # (Auto) 0.1 Abs Immat Gran (auto) 0.06 H D-Dimer 159 Turbidity < 20 Sodium 140 Potassium 4.3 Chloride 103 Carbon Dioxide 26 Anion Gap 11 BUN 26.0 H Creatinine 1.0 GFR Calculation 76 BUN/Creatinine Ratio 26 Glucose 101 Calculated Osmolality 274 Calcium 9.8 Icterus Index < 2 Specimen Hemolysis < 15 Ur Collection Type Urine Color Urine Clarity Urine pH Ur Specific [place] Urine Protein Urine Glucose (UA) Urine Ketones Urine Occult Blood Urine Nitrate Urine Bilirubin Urine Urobilinogen Ur Leukocyte Esterase Urinalysis Comment 05/04/17 12:44 WBC RBC Hgb Hct MCV MCH MCHC RDW Std Deviation Plt Count MPV Immature Gran % (Auto) Neut % (Auto) Lymph % (Auto) Posey % (Auto) Eos % (Auto) Baso % (Auto) Neut # (Auto) Lymph # (Auto) Posey # (Auto) Eos # (Auto) Baso # (Auto) Abs Immat Gran (auto) D-Dimer Turbidity Sodium Potassium Chloride Carbon Dioxide Anion Gap BUN Creatinine GFR Calculation BUN/Creatinine Ratio Glucose Calculated Osmolality Calcium Icterus Index Specimen Hemolysis Ur Collection Type Urine, clean catch Urine Color Yellow Urine Clarity Clear Urine pH 6.0 Ur Specific [place] <=1.005 L Urine Protein Negative Urine Glucose (UA) Negative Urine Ketones Negative Urine Occult Blood Negative Urine Nitrate Negative Urine Bilirubin Negative Urine Urobilinogen 0.2 Ur Leukocyte Esterase Negative Urinalysis Comment Microscopic not ind. - Radiology Radiology: Date of Exam: 05/04/17 Ordering Provider: Jorge Diez DO Type of Exam(s): XR chest 1V Reason for Exam(s): A-fib with RVR Indication: A-fib with RVR PROCEDURE: XR chest 1V: Encounter: Initial Comparison: March 09, 2017 FINDINGS: The lungs are clear. There is no abnormal airspace opacity, pleural effusion or pneumothorax identified. The heart size, pulmonary vasculature and mediastinum are within normal limits. No significant skeletal abnormality is seen. IMPRESSION: No acute cardiopulmonary abnormality. History of Present Illness HPI: This is a 62 year old patient known to Dr. Alonso for A-fib, cardiomyopathy, last echo showed. 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 After the craniotomy surgery , he went back into A-fib. His HR has been difficult to control since. Of course his electrolytes and hormones have been out of whack. he now has a chronic headache. On 02/2017 he had A-fib s/p ASHLEY / DCCV. ASHLEY: NICM, EF 25-30% and he was cardioverted from A-fib to SR. Life Vest placed on pt. On 04/23/2017 echo: EF 45-50%. Since he was having frequent non sustained runs of V-tach, therefore we continued the Life Vest and Amiodarone. On Friday he had an appt with Dr. Hartman, his PCP, and had the tawny removed from his craniotomy. His BP was low in the 80's and Entresto was was cut in half. called pharmacist to make sure it could be cut in half. On Sat his BP was 98/60 and she resumed Entresto 1 whole tab daily. This morning at 0400 he got up to use the bathroom and get a drink of water and the Life Vest started alarming. He and pushed the button to stop the alarming. the Life Vest alarmed 3x. called the Life Vest rep and was told he was in A-fib w RVR and not V-tach. They were told the range for his HR was set at 62 - 150 and it was set when he was not in A-fib. He did not feel the palpitations, was not SOB, lightheaded or dizzy. They went back to bed. At 0900 they received a call from AMARA with Dr. Alonso and advised to go to the ER to monitor his HR and attempt better HR control. He had not taken his am meds because they were going to the hospital and did not think he should take them for fear provider may need to change. About 1100 they arrived in the [facility] and he was in A-fib, HR 140's. and Dr. Diez called AMARA and gave metoprolol 50mg x2 and the rest of his morning meds including amiodarone. We held the Entresto due to low BP in the 90's. In about 1 hr his HR came down to 120's and later 100 's to 110's. Pt and states they did not get any sleep at night while in the [facility] for his craniotomy. He has been home about a week. They both want him to get some sleep. Hospital Course This is a general summary of the patient's hospital course. For more details refer to the complete medical record. Hospital course: Braulio was admitted to the telemetry floor, remained in AFib. Metoprolol was increased to 100mg for rate control. Amiodarone was stopped and patient is referred to EP for ablation. Continue Pradaxa to minimize risk of stroke related to AFib. Time spent with patient: 25 - 35 minutes DVT Prophylaxis: Pradaxa Exam Vital signs: Temperature 97.6 F 05/05/17 15:21 Pulse Rate 69 05/05/17 17:28 Respiratory Rate 18 05/05/17 15:21 Blood Pressure 105/66 05/05/17 17:28 Pulse Oximetry 96 05/05/17 17:28 - Constitutional no acute distress, well nourished, cooperative - Routine HEENT Exam Head: Present: normocephalic ENT: Present: mucous membranes moist - Routine Neck Exam Absent: JVD, carotid bruit - Routine Chest/Breast/Axilla Exam Chest wall: Absent: tenderness - Routine Respiratory Exam Present: CTA bilaterally. Absent: rales, wheezes - Routine Cardiovascular Exam Present: irregular rhythm. Absent: JVD - Routine Abdominal Exam Present: soft, normoactive bowel sounds - Routine Extremities Exam Present: no edema - Routine Skin Exam Present: intact, dry, warm - Routine Neurological Exam Present: alert, oriented X3 - Routine Psychiatric Exam Present: normal affect, normal thought process Results 05/04/17 12:00 05/04/17 12:00 Intake and Output 05/05/17 05/05/17 05/05/17 06:59 14:59 22:59 Intake Total 450 / 450 2540 / 2540 Balance 450 / 450 2540 / 2540 Intake: Oral 450 / 450 2540 / 2540 Other: # Voids 1 3 Weight 269 lb 10.005 oz Patient Weight 05/06/17 06:59 Weight 269 lb 10.005 oz - Imaging and Cardiology EKG results: image reviewed - EKG Interpretation EKG shows: atrial fibrillation Discharge Plan - Med Rec/Dispo Referrals/Follow Up: Morgan Alonso MD [Physician] - Nila Instructions: A-fib (Atrial Fibrillation) (DC) Prescriptions: New Metoprolol Tartrate [Lopressor] 100 mg PO BID #60 tab Continue Somatropin [Genotropin] 0.04 mg SQ DAILY #0 Dabigatran [Pradaxa] 150 mg PO BID #60 capsule SACUBITRIL/VALSARTAN 24/26mg [ENTRESTO 24/26mg] 1 tab PO BID #60 tablet Testosterone Cypionate 200 mg IM Q2WKS Seroquel (quetiapine) 25 mg tablet 50 mg PO BID tab levothyroxine 50 mcg tablet 50 mcg PO DAILY tab Cortef (Hydrocortisone) 10 mg tablet 20 mg PO QAM tab geatvskprg-xlyswhzlfrxzq-lkxjiwvd 50 mg-300 mg-40 mg capsule 1 cap PO Q6HR PRN cap PRN Reason: Headache Cortef (Hydrocortisone) 10 mg tablet 10 mg PO HS tab morphine 15 mg immediate release tablet 7.5 mg PO Q6H PRN tab PRN Reason: Pain Discontinued Amiodarone [Pacerone] 200 mg PO DAILY #30 tablet Lopressor (metoprolol tartrate) 50 mg tablet 50 mg PO BID tab - Disposition 01 Discharged Home, Self-Care <GavinMorgan - Last Filed: 05/07/17 12:19> Discharge Information Date of admission: 05/04/17 14:12 Attending Physician: Morgan Alonso MD Primary care physician: Severiano Hartman MD - Discharge Diagnosis (1) Pituitary insufficiency Status: Chronic (2) Atrial fibrillation with rapid ventricular response Status: Chronic (3) Hypotension Status: Acute (4) Cardiomyopathy Status: Chronic Hospital Course This is a general summary of the patient's hospital course. For more details refer to the complete medical record. Exam Vital signs: Temperature 97.6 F 05/05/17 15:21 Pulse Rate 69 05/05/17 17:28 Respiratory Rate 18 05/05/17 15:21 Blood Pressure 105/66 05/05/17 17:28 Pulse Oximetry 96 05/05/17 17:28 Results 05/04/17 12:00 05/04/17 12:00 Discharge Plan - Med Rec/Dispo - Attestation Attestation Narrative: 05/07/17 12:19 Recommendation After examining the patient I agree with the above assessment. I am involved in the formulation of the patient's plan of care.
[2017-05-05] MEDS ORDERED: SACUBITRIL/VALSARTAN 24/26mg TABLET PO SCH (21:00)
[2017-05-05] MEDS ORDERED: HYDROCORTISONE 10 MG TABLET PO SCH (21:00)
== END 2017-05-05 19:10 | disposition home or self-care (01) ==
LOC: ED 10:31 → INTOOBSV 14:12 → MED 14:12
PROVIDERS: ADMIT Internal Medicine Cardiovascular Disease; ATTEND Internal Medicine Cardiovascular Disease